=== PATIENT | male | born 1965 | race Caucasian/White ===

== ENCOUNTER 2018-12-31 00:10 | Emergency (ER) | payer OTHER ==
[~2018-12-31] VITALS: Ht 182.9 cm; Wt 95.3 kg
[2018-12-31] MEDS ORDERED: IV NORMAL SALINE 1000ML BAG 1,000 ML IV ONE (01:15)
[2018-12-31] MEDS ORDERED: KETOROLAC 15 MG/ML VIAL. IV ONE (01:30)
[2018-12-31] MEDS ORDERED: ONDANSETRON PF 4 MG/2 ML VIAL. IV ONE (01:30)
[2018-12-31] MEDS ORDERED: DEXAMETHASONE SOD PHOS 20 MG/5 ML VIAL. IV ONE (01:30)
[2018-12-31] MEDS ORDERED: diphenhydrAMINE 50 MG/ML VIAL IVP ONE (01:30)
[2018-12-31] MEDS ORDERED: BUTALB/APAP/CAFEIN 50/325/40MG TABLET. PO ONE (02:00)
[2018-12-31] MEDS ORDERED: BUTA1TAB23 PO (02:34)
--- NOTE | 2018-12-31 02:34 | PHYS DOC ---
Past Medical History Past Medical History: GERD, Hypertension, Other Additional Past Medical Histor: KIDNEY STONES Past Surgical History: No Surgical History Smoking: Cigarettes, 1 Pack Per Day Alcohol Use: Occasionally Drug Use: Marijuana Adult General Chief Complaint Chief Complaint: HEADACHE HPI HPI 53 y/o male presents with 3 week history of intermittent headaches with associated upper body aches. Patient reports pressure to forehead and behind eyes. Denies vision change. Denies fever/chills. Denies nasal congestion. Denies trauma. Denies use of blood thinners. Review of Systems Review of Systems Constitutional: Denies fever or chills [] Eyes: Denies change in visual acuity or redness HENT: Denies nasal congestion or sore throat [] Respiratory: Denies cough or shortness of breath [] Cardiovascular: Denies chest pain or palpitations GI: Denies abdominal pain, vomiting, or diarrhea [] : Denies dysuria or hematuria [] Musculoskeletal: Denies neck pain or joint pain [] Integument: Denies rash or skin lesions [] Neurologic: Reports headache; denies focal weakness or sensory changes [] Complete systems were reviewed and found to be within normal limits, except as documented in this note. Current Medications Current Medications Current Medications Medications (Trade) Dose Ordered Sig/Nat Start Time Stop Time Status Last Admin Dose Admin Acetaminophen/ Butalbital/ Caffeine (Fioricet) 2 tab 1X ONCE 12/31/18 02:00 12/31/18 02:01 DC 12/31/18 02:24 2 TAB Dexamethasone Sodium Phosphate (Decadron) 10 mg 1X ONCE 12/31/18 01:30 12/31/18 01:31 DC 12/31/18 01:26 10 MG Diphenhydramine HCl (Benadryl) 25 mg 1X ONCE 12/31/18 01:30 12/31/18 01:31 DC 12/31/18 01:27 25 MG Ketorolac Tromethamine (Toradol 15mg Vial) 15 mg 1X ONCE 12/31/18 01:30 12/31/18 01:31 DC 12/31/18 01:27 15 MG Ondansetron HCl (Zofran) 4 mg 1X ONCE 12/31/18 01:30 12/31/18 01:31 DC 12/31/18 01:27 4 MG Sodium Chloride 1,000 ml @ 1,000 mls/hr 1X ONCE 12/31/18 01:15 12/31/18 02:14 DC 12/31/18 01:26 1,000 MLS/HR Allergies Allergies Allergies Coded Allergies Type Severity Reaction Last Updated Verified Penicillins Allergy Unknown 12/31/18 Yes promethazine Allergy Unknown 12/31/18 Yes Physical Exam Physical Exam Constitutional: Well developed, well nourished, no acute distress, non-toxic appearance. [] HENT: Normocephalic, atraumatic, bilateral TMs normal, oropharynx moist, no nasal congestion or sinus tenderness noted Eyes: PERRL, EOMI, conjunctiva normal, no discharge. [] Neck: Normal range of motion, no tenderness, supple, no stridor. [] Cardiovascular: Heart rate regular rhythm, CR < 2 sec Lungs & Thorax: Bilateral breath sounds clear to auscultation [] Abdomen: Soft, no tenderness Skin: Warm, dry, no erythema, no rash. [] Back: No tenderness, no CVA tenderness. [] Extremities: No tenderness, ROM intact, no edema. [] Neurologic: Alert and oriented X 3, normal motor function, normal sensory function, no focal deficits noted. [] Psychologic: Affect normal, judgement normal, mood normal. [] Current Patient Data Vital Signs Vital Signs Date Time Temp Pulse Resp B/P (MAP) Pulse Ox O2 Delivery O2 Flow Rate FiO2 12/31/18 02:47 80 96 12/31/18 01:15 98.1 18 165/91 (115) Room Air 98.1 EKG EKG [] Radiology/Procedures Radiology/Procedures [] Course & Med Decision Making Course & Med Decision Making Pertinent Labs reviewed. (See chart for details) Patient presents with 3 week history of headache with upper body "aches". Afebrile. Patient neurologically intact. NO history or signs of trauma. No meningeal signs. NIHSS 0. Labs obtained and posted to chart. Symptomatic treatment provided with interval improvement. Patient stable for discharge home with close outpatient follow-up with PCP/ neurologist. Neurology referral provided. Discussed findings and plan with patient, who acknowledges understanding and agreement. Dragon Disclaimer Dragon Disclaimer This electronic medical record was generated, in whole or in part, using a voice recognition dictation system. Departure Departure Impression: Primary Impression: Headache Disposition: HOME, SELF-CARE Condition: STABLE Referrals: NO PCP (PCP) MERLIN OSEGUERA MD Patient Instructions: Headache, FAQs Scripts Butalb/Acetaminophen/Caffeine ([id number]) 1 Each Tablet 1 EACH PO Q6HRS PRN for HEADACHE, #14 TAB Prov: JUAN BROWN DO 12/31/18 NIHSS Stroke Scale NIH Stroke Scale: NIH Stroke Scale Response (Comments) Value Level of Consciousness: 0 Alert/Responsive 0 LOC Questions: 0 Answers both correctly 0 LOC Commands: 0 Performs both tasks 0 Best Gaze: 0 Normal 0 Visual: 0 No visual loss 0 Facial Palsy: 0 Normal, symmetrical 0 Motor - Left Arm 0 No drift 0 Motor - Right Arm 0 No drift 0 Motor - Left Leg 0 No drift 0 Motor: Right Leg 0 No drift 0 Limb Ataxia: 0 Absent 0 Sensory: 0 No loss 0 Best Language: 0 Normal 0 Dysathria: 0 Normal 0 Extinction and Inattention: 0 Normal 0 Total 0 Problem Qualifiers Primary Impression: Headache Headache type: unspecified Headache chronicity pattern: acute headache Intractability: not intractable Qualified Codes: R51 - Headache JUAN BROWN DO Dec 31, 2018 02:34
[2018-12-31 02:47] VITALS: BP 143/77
== END 2018-12-31 03:03 | disposition home or self-care (01) ==
LOC: ER 00:10
DX: R51 Headache (principal); K21.9 Gastro-esophageal reflux disease without esophagitis; I10 Essential (primary) hypertension; F17.210 Nicotine dependence, cigarettes, uncomplicated; Z87.442 Personal history of urinary calculi; Z88.8 Allergy status to other drugs, medicaments and biological substances; Z88.0 Allergy status to penicillin
CPT/HCPCS: 96374; 96375; 99283; J1100; J1200; J1885; J2405; J7030